=== PATIENT | male | born 1985 | race Caucasian/White ===

== ENCOUNTER 2020-03-08 06:23 | Emergency (ER) | payer SELFPAY ==
[~2020-03-08] VITALS: Ht 157.5 cm; Wt 59.0 kg
[2020-03-08 06:36] VITALS: BP_SYST 126
[2020-03-08 07:17] VITALS: BP_SYST 128
== END 2020-03-08 07:17 | disposition home or self-care (01) ==
LOC: SED 06:23
DX: H92.02 Otalgia, left ear (principal)
CPT/HCPCS: 99283